=== PATIENT | male | born 1940 | race Caucasian/White ===

== ENCOUNTER 2016-08-08 05:39 | Day surgery (SDC) | payer MEDICARE, BC ==
--- NOTE | ~2016-08-08 | EGD ---
EGD REPORT [facility] [address] [address] NAME: ROHIT MANCUSO : [birth year] STATUS : REG [facility] PAT#: [id number] AGE: 75 ADM/REG DATE : 08/08/16 MR#: [id number] REPORT SERV DATE: 08/08/16 DICTATED BY: SANTOSH GOODWIN DATE: 08/08/16 REPORT STATUS : Draft TRANSCRIBED BY: [employer] DATE: 08/08/16 [facility] Patient Name: Rohit Mancuso Date of : 1940 Attending MD: SANTOSH GOODWIN, Procedure Date No Time: 08/08/2016 Procedure: Upper GI endoscopy Indications: Iron deficiency anemia Referring MD: LUCIANO VILLALBA MD, GEORGE PERALES Medicines: Monitored Anesthesia Care Complications: No immediate complications. Estimated blood loss: None. Procedure: Pre-Anesthesia Assessment: - ASA Grade Assessment: II - A patient with mild systemic disease. After obtaining informed consent, the endoscope was passed under direct vision. Throughout the procedure, the patient's blood pressure, pulse, and oxygen saturations were monitored continuously. The GIF [id number] was introduced through the mouth, and advanced to the afferent and efferent jejunal loops. The upper GI endoscopy was accomplished without difficulty. The patient tolerated the procedure well. Findings: The esophagus and gastroesophageal junction were examined with white light. Cherry's esophagus was present. Circumferential salmon-colored mucosa was present from 34 to 38 cm. The maximum longitudinal extent of these esophageal mucosal changes was 4 cm in length. Mucosa was biopsied with a cold forceps for histology in 4 quadrants at intervals of 2 cm. The following biopsy specimens were sent to pathology: A total of 3 specimen bottles were sent to pathology. Two 8 mm sessile polyps with bleeding and no stigmata of recent bleeding were found in the gastric body. Biopsies were taken with a cold forceps for histology. Verification of patient identification for the specimen was done. Estimated blood loss was minimal. 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 A few 5 mm sessile polyps with no bleeding and no stigmata of recent bleeding were found at the anastomosis. Biopsies were taken with a cold forceps for histology. Verification of patient identification for the specimen was done. Estimated blood loss was minimal. Diffuse mild inflammation characterized by erythema was found in the entire examined stomach. Biopsies were taken with a cold forceps for histology. Verification of patient identification for the specimen was done. Estimated blood loss was minimal. The examined jejunum was normal. This was biopsied with a cold forceps EGD REPORT [address] [place]. [address] NAME: ROHIT MANCUSO : [birth year] STATUS : REG [facility] PAT#: [id number] AGE: 75 ADM/REG DATE : 08/08/16 MR#: [id number] REPORT SERV DATE: 08/08/16 DICTATED BY: SANTOSH GOODWIN DATE: 08/08/16 REPORT STATUS : Draft TRANSCRIBED BY: [employer] DATE: 08/08/16 for histology. Verification of patient identification for the specimen was done. Estimated blood loss was minimal. Impression: - Cherry's esophagus. Biopsied. - Two gastric polyps. Biopsied. - A gastroenterostomy was found. - A few gastric polyps. Biopsied. - Gastritis. Biopsied. - Normal examined jejunum. Biopsied. Recommendation: - Patient has a contact number available for emergencies. The signs and symptoms of potential delayed complications were discussed with the patient. Return to normal activities tomorrow. Written discharge instructions were provided to the patient. - Return to previous diet. - Continue present medications. - Await pathology results. - Repeat the upper endoscopy for surveillance based on pathology results. - Suspect MORGAN is from [place]. Procedure Code(s): --- Professional --- 75905, Esophagogastroduodenoscopy, flexible, transoral; with biopsy, single or multiple Diagnosis Code(s): --- Professional --- K22.70, Cherry's esophagus without dysplasia K31.7, Polyp of stomach and duodenum Z98.0, Intestinal bypass and anastomosis status K29.70, Gastritis, unspecified, without bleeding D50.9, Iron deficiency anemia, unspecified CPT copyright 2013 [employer] [place] [employer]. All rights reserved. The codes documented in this report are preliminary and upon bundle packer review may be revised to meet current compliance requirements. SANTOSH GOODWIN, 08/08/2016 8:06 AM Number of Addenda: 0 Note Initiated On: 08/08/2016 7:00 AM Scope Withdrawal Time 0 hours 0 minutes 0 seconds EGD REPORT [facility] [address] [place]. [address] NAME: ROHIT MANCUSO : [birth year] STATUS : REG [facility] PAT#: [id number] AGE: 75 ADM/REG DATE : 08/08/16 MR#: [id number] REPORT SERV DATE: 08/08/16 DICTATED BY: SANTOSH GOODWIN DATE: 08/08/16 REPORT STATUS : Draft TRANSCRIBED BY: [employer] DATE: 08/08/16 [place] [address]
--- NOTE | ~2016-08-08 | EGD ---
EGD REPORT [facility] [address] [address] NAME: ROHIT MANCUSO : 44 STATUS : REG [facility] [place] PAT#: [id number] AGE: 75 ADM/REG DATE : 08/08/16 MR#: [id number] REPORT SERV DATE: 08/08/16 DICTATED BY: SANTOSH GOODWIN DATE: 08/08/16 REPORT STATUS : Draft TRANSCRIBED BY: [employer] DATE: 08/08/16 [facility] Patient Name: Rohit Mancuso Date of : 1940 Attending MD: SANTOSH GOODWIN, Procedure Date No Time: 08/08/2016 Procedure: Colonoscopy Indications: Iron deficiency anemia Referring MD: LUCIANO VILLALBA MD, GEORGE PERALES Medicines: Monitored Anesthesia Care Complications: No immediate complications. Estimated blood loss: None. Procedure: Pre-Anesthesia Assessment: - ASA Grade Assessment: II - A patient with mild systemic disease. After I obtained informed consent, the scope was passed under direct vision. Throughout the procedure, the patient's blood pressure, pulse, and oxygen saturations were monitored continuously. The CF [id number] was introduced through the anus and advanced to the ileocolonic anastomosis. The colonoscopy was performed without difficulty. The patient tolerated the procedure well. The quality of the bowel preparation was good. Findings: The perianal and digital rectal examinations were normal. There was evidence of a prior xjxx-my-ghmj ileo-colonic anastomosis in the ascending colon. This was patent. This was characterized by healthy appearing mucosa. This was traversed. Multiple small-mouthed diverticula were found in the sigmoid colon. Internal hemorrhoids were found during retroflexion and were Grade I (internal hemorrhoids that do not prolapse). The exam was otherwise without abnormality on direct and retroflexion views. Impression: - Patent xmdi-et-bkey ileo-colonic anastomosis. - Diverticulosis in the sigmoid colon. - Internal hemorrhoids. - The examination was otherwise normal on direct and retroflexion views. Recommendation: - Patient has a contact number available for emergencies. The signs and symptoms of potential delayed complications were discussed with the patient. Return to normal activities tomorrow. Written discharge instructions were provided to the patient. EGD REPORT [address] [address] NAME: ROHIT MANCUSO : [birth year] STATUS : REG [facility] [place] PAT#: [id number] AGE: 75 ADM/REG DATE : 08/08/16 MR#: [id number] REPORT SERV DATE: 08/08/16 DICTATED BY: SANTOSH GOODWIN DATE: 08/08/16 REPORT STATUS : Draft TRANSCRIBED BY: [employer] DATE: 08/08/16 - Return to previous diet. - Continue present medications. - Repeat colonoscopy in 3 years for surveillance. Procedure Code(s): --- Professional --- 01486, Colonoscopy, flexible, proximal to splenic flexure; diagnostic, with or without collection of specimen(s) by brushing or washing, with or without colon decompression (separate procedure) Diagnosis Code(s): --- Professional --- Z98.0, Intestinal bypass and anastomosis status K64.0, First degree hemorrhoids K57.30, Diverticulosis of large intestine without perforation or abscess without bleeding D50.9, Iron deficiency anemia, unspecified CPT copyright 2013 [employer]. All rights reserved. The codes documented in this report are preliminary and upon round cutter operator review may be revised to meet current compliance requirements. SANTOSH GOODWIN, 08/08/2016 7:50 AM Number of Addenda: 0 Note Initiated On: 08/08/2016 6:57 AM Scope Withdrawal Time 0 hours 9 minutes 29 seconds [id number] [id number]
[~2016-08-08 05:39] MED LIST: ASAB PO; CENTRUM PO; CENTRUM TAB1 TAB PO; CHONDROITIN OR; GLUCCHONDR PO; GLUCOSAMINE1 TA2 PO; GLUCOSAMINEPO PO; LAM250 PO; LIPITOR10 PO; NEXIUM20 M1 PO; NEXIUM40 MG PO; PRIN10 PO; PRIN5 PO; TOPXL25 PO; ZOL50 PO
== END 2016-08-08 23:59 | disposition home or self-care (01) ==
LOC: DMU 05:39
PROVIDERS: Internal Medicine Gastroenterology
PROC: 0DBA8ZX Excision of Jejunum, Via Natural or Artificial Opening Endoscopic, Diagnostic (ICD-10-PCS; 2016-08-08)
PROC: 0DJD8ZZ Inspection of Lower Intestinal Tract, Via Natural or Artificial Opening Endoscopic (ICD-10-PCS; 2016-08-08)
PROC: 0DB68ZX Excision of Stomach, Via Natural or Artificial Opening Endoscopic, Diagnostic (ICD-10-PCS; principal; 2016-08-08 07:00)
PROC: 0DB58ZX Excision of Esophagus, Via Natural or Artificial Opening Endoscopic, Diagnostic (ICD-10-PCS; 2016-08-08 07:00)
DX: K31.7 Polyp of stomach and duodenum (principal); K29.70 Gastritis, unspecified, without bleeding; K22.70 Barrett's esophagus without dysplasia; K57.30 Diverticulosis of large intestine without perforation or abscess without bleeding; K64.8 Other hemorrhoids; D50.9 Iron deficiency anemia, unspecified; Z98.0 Intestinal bypass and anastomosis status; I10 Essential (primary) hypertension; E78.5 Hyperlipidemia, unspecified; R29.810 Facial weakness; Z86.12 Personal history of poliomyelitis; Z79.899 Other long term (current) drug therapy
CPT/HCPCS: 88305; J2370